=== PATIENT | male | born 1940 | race Caucasian/White ===

== ENCOUNTER → 2020-02-18 | Outpatient (CLI) | payer MEDICARE ==
[2017-08-19 15:00] VITALS: BP 129/74
[~2020-02-18] MED LIST: ALBU2.5V14 NEB; ALBU2.5V8 IH; AMLO10TA8 PO; AMLO5TAB4 PO; ASCO100019 PO; ASPI-482 PO; BREO ELLIPTA 11 EACH IH; CHOL10003 PO; CYAN-25 PO; CYAN1TAB15 SL; FISH1CAP PO; FLUT16SP NS; HYDR12.575 PO; LOSA-73 PO; LOSA100T14 PO; METH479P PO; METO25TA4 PO; MOME13HF2 IH; NAPR-514 PO; SPIR25TA5 PO; TIOT18CA IH; TRIA1TAB2 PO; UMEC62.5 IH
--- NOTE | 2020-02-18 12:35 | CARD ---
MR#: [id number] Date of Study: 02/18/2020 Ordering Physician: IRMA SHEPPARD, Referring Physician: IRMA SHEPPARD, Tech: Neida Nunez APPROVED REPORT EXAM: Two-dimensional and M-mode echocardiogram with Doppler and color Doppler. Other Information Quality : FairHR: [id number] Technically limited study due to COPD INDICATION COPD RISK FACTORS Hypertension 2D DIMENSIONS Left Atrium(2D)3.4 (1.6-4.0cm)IVSd1.2 (0.7-1.1cm) Aortic Root(2D)3.3 (2.0-3.7cm)LVDd4.5 (3.9-5.9cm) LVOT Diameter2.1 (1.8-2.4cm)PWd1.1 (0.7-1.1cm) LVDs2.8 (2.5-4.0cm)FS (%) 38.0 % SV62.6 mlLVEF(%)68.3 (>50%) Aortic Valve AoV Peak Sean.116.2cm/sAoV VTI26.2cm AO Peak GR.5.4mmHgLVOT Peak Sean.104.1cm/s LVOT VTI 24.98cmAO Mean GR.3mmHg MADDIE (VMAX)2.54kv6YWX (VTI)3.35cm2 Mitral Valve MV E Xahspjal94.5cm/sMV DECEL [id number] MV A Zjmfwyjg24.1cm/sMV E Mean Gr.1mmHg MV IAN87ycT/A Ratio1.1 MVA (PHT)2.99cm2 TDI E/Lateral E'6.3E/Medial E'7.3 Pulmonary Valve PV Peak Jldkyixo27.4cm/sPV Peak Grad.3mmHg Tricuspid Valve TR P. Mccikzkm059dq/sTR Peak Gr.12mmHg Pulmonary Vein S1 Bwmzmoco96.2cm/sPVa [id number] LEFT VENTRICLE The left ventricle is normal size. There is borderline to mild concentric left ventricular hypertroph y. The Ejection Fraction is 55-60%. The left ventricular systolic function is normal and the ejection fraction is within normal range. There is normal LV segmental wall motion. Transmitral Doppler flow pattern is Grade II-pseudonormal filling dynamics. RIGHT VENTRICLE The right ventricle is normal size. There is normal right ventricular wall thickness. The right ventr icular systolic function is normal. ATRIA The left atrium is borderline dilated. The right atrium size is normal. The interatrial septum is int act with no evidence for an atrial septal defect or patent foramen ovale as noted on 2-D or Doppler i maging. AORTIC VALVE The aortic valve is grossly normal in structure and function. Doppler and Color Flow revealed no sign ificant aortic regurgitation. There is no significant aortic valvular stenosis. Calculated aortic vaishnavi ve area is 3.08 cm2 with maximum pressure gradient of 7 mmHg and mean pressure gradient of 4 mmHg. MITRAL VALVE The mitral valve is normal in structure and function. There is no evidence of mitral valve prolapse. There is no mitral valve stenosis. Doppler and Color Flow revealed no mitral valve regurgitation note d. TRICUSPID VALVE The tricuspid valve is not well visualized. Doppler and Color Flow revealed no tricuspid valve regurg itation noted. There is no tricuspid valve stenosis. PULMONIC VALVE The pulmonic valve is not well visualized. Doppler and Color Flow revealed no pulmonic valvular regur gitation. There is no pulmonic valvular stenosis. GREAT VESSELS The aortic root is normal in size. The IVC is normal in size and collapses >50% with inspiration. PERICARDIAL EFFUSION There is no evidence of significant pericardial effusion. Critical Notification Critical Value: No <Conclusion> The Ejection Fraction is 55-60%. The left ventricular systolic function is normal and the ejection fr action is within normal range. There is normal LV segmental wall motion. Technically difficult study Signed by : Gato Gutierrez, Electronically Approved : 02/18/2020 12:35:11
== END | disposition home or self-care (01) ==
LOC: ECHO 09:47
PROVIDERS: ATTEND Internal Medicine Cardiovascular Disease
DX: J44.9 Chronic obstructive pulmonary disease, unspecified (principal)
CPT/HCPCS: 93306